=== PATIENT | female | born 1990 | race American Indian/Alaskan Native ===

== ENCOUNTER 2016-05-08 16:24 | Emergency (ER) | payer SELFPAY ==
--- NOTE | 2016-05-08 17:38 | Emergency Department Report ---
Chief Complaint: Vaginal Bleeding Stated Complaint: VAGINAL BLEEDING X 10 DAYS Time Seen by Provider: 05/08/16 17:32 - HPI History of Present Illness: 25-year-old female coming in for left lower pelvic pain 10 days also she complains of heavy vaginal bleeding for 10 days as well. Patient reports she isn't passing clots. She is using about 5 or more pads a day. Denies being . She denies chest pain shortness of breathing no nausea no vomiting no diarrhea. Patient reports that her cycle usually last about 5 days and she' s been having that sometimes twice a month beginning of the month as well as the end of the month. Patient denies having any abdomen pain at this time. She reports she has a past medical history of ovarian cysts on the right side. She currently does not have a primary care or primary commercial account officer. - Exam Vital Signs: Vital Signs 05/08/16 17:14 Temperature 98.2 F Pulse Rate 80 Respiratory 19 Rate Blood Pressure 150/110 O2 Sat by Pulse 98 Oximetry Physical Exam: Patient's age is alert and oriented 3. Cardiovascular regular rate and rhythm respiratory clear to auscultation bilaterally abdomen soft nontender nondistended. MSE screening note: Focused history and physical exam performed. Due to findings the following was ordered: CBC CMP serum UA ordered patient will be evaluated in the main ER ED Disposition for MSE Condition: Stable
[2016-05-08 17:56] LABS: Hematocrit 39.5 % (30.3-42.9); Hemoglobin 13.4 gm/dl (10.1-14.3); Mean Corpuscular HGB Conc 34 % (30-34); Mean Corpuscular Hemoglobin 28 pg (28-32); Mean Corpuscular Volume 83 fl (79-97); Platelet Count 291 K/mm3 (140-440); Red Blood Count 4.79 M/mm3 (3.65-5.03); Red Cell Distribution Width 13.5 % (13.2-15.2); White Blood Count 8.9 K/mm3 (4.5-11.0)
[2016-05-08 18:15] LABS: Anion Gap 15 mmol/L; Blood Urea Nitrogen 9 mg/dL (7-17); Calcium 8.8 mg/dL (8.4-10.2); Carbon Dioxide 27 mmol/L (22-30); Chloride 100.2 mmol/L (98-107); Glucose 93 mg/dL (65-100); Potassium 3.6 mmol/L (3.6-5.0); Sodium 139 mmol/L (137-145)
[2016-05-08 19:13] LABS: Bilirubin,Urine NEG (Negative); Blood,Urine LG (Negative); Ketones,Urine NEG (Negative); Leukocyte Esterase,Urine NEG (Negative); Mucus,Urine FEW /HPF; Nitrite,Urine NEG (Negative); Protein,Urine <15 mg/dL mg/dL (Negative); Urobilinogen,Urine < 2.0 mg/dL (<2.0)
[2016-05-08 19:14] LABS: RBC,Urine > 182.0 /HPF (0.0-6.0)
--- NOTE | 2016-05-09 04:11 | Ultrasound Report ---
FINAL REPORT PROCEDURE: US PELVIS DUPLEX DOPPLER COMP TECHNIQUE: Real-time transabdominal sonography in multiple planes of the pelvis was performed. The pelvic structures, especially the ovaries were not optimally visualized. Transvaginal sonography was then performed to better evaluate the structures and/or abnormalities described below with image documentation. CPT 25298 and 61830 HISTORY: pelvic pain COMPARISON: No prior studies are available for comparison. FINDINGS: UTERUS Size: 6.2 x 3.1 x 5 cm. Endometrial thickness: 10 mm. Orientation: anteverted. Cervix: Normal. Fibroids/masses: None. RIGHT Ovary: 4.2 x 3.2 x 3 cm. Appearance: The simple cyst on the right ovary measures 2.8 centimeters. LEFT Ovary: 3.1 x 2.5 x 5 cm. Appearance: Normal. Pelvic fluid: None. Other: There is blood flow to each ovary.. IMPRESSION: The uterus in left ovary have a normal appearance. There is a dominant simple cyst on the right ovary, this measures 2.8 centimeters.
--- NOTE | 2016-05-09 04:12 | Ultrasound Report ---
FINAL REPORT PROCEDURE: Pelvic ultrasound, transabdominal and transvaginal TECHNIQUE: Real-time transabdominal sonography in multiple planes of the pelvis was performed. The pelvic structures, especially the ovaries were not optimally visualized. Transvaginal sonography was then performed to better evaluate the structures and/or abnormalities described below with image documentation. CPT 13422 and 97459 HISTORY: pelvic pain COMPARISON: No prior studies are available for comparison. FINDINGS: UTERUS Size: 6.2 x 3.1 x 5 cm. Endometrial thickness: 10 mm. Orientation: anteverted. Cervix: Normal. Fibroids/masses: None. RIGHT Ovary: 4.2 x 3.2 x 3 cm. Appearance: The simple cyst on the right ovary measures 2.8 centimeters. LEFT Ovary: 3.1 x 2.5 x 5 cm. Appearance: Normal. Pelvic fluid: None. Other: There is blood flow to each ovary.. IMPRESSION: The uterus in left ovary have a normal appearance. There is a dominant simple cyst on the right ovary, this measures 2.8 centimeters. PROCEDURE: TECHNIQUE: HISTORY: COMPARISON: FINDINGS: IMPRESSION:
[2016-05-09 05:11] LABS: Basophils % (Auto) 0.3 % (0.0-1.8); Eosinophils % (Auto) 1.1 % (0.0-4.3); Hematocrit 36.2 % (30.3-42.9); Mean Corpuscular HGB Conc 33 % (30-34); Mean Corpuscular Hemoglobin 28 pg (28-32); Mean Corpuscular Volume 83 fl (79-97); Platelet Count 251 K/mm3 (140-440); Red Blood Count 4.35 M/mm3 (3.65-5.03); Red Cell Distribution Width 13.9 % (13.2-15.2); White Blood Count 8.3 K/mm3 (4.5-11.0)
--- NOTE | 2016-05-09 05:43 | Emergency Department Report ---
ED Female HPI - General Chief complaint: Vaginal Bleeding Stated complaint: VAGINAL BLEEDING X 10 DAYS Time Seen by Provider: 05/08/16 17:32 Source: patient Mode of arrival: Ambulatory Limitations: No Limitations - History of Present Illness Initial comments: 25-year-old female past medical history obesity, ovarian cysts presents with complaint of 10 days persistent heavy vaginal bleeding approximately 20-30 pads per day of minor right side adnexal pain/pelvic pain. Last menstrual period 04/28. Patient states that her periods are typically heavy and somewhat regular approximately 28-30 day cycle. Patient denies any chest pain no nausea no vomiting denies any sensation of weakness states that her concern is for heavy bleeding and passing clots, unsure of status. HEENT has minor amount of pelvic pain right side crampy intermittent in nature does not currently feel it at this moment during clinical interview. Does not currently have CLAIMS COUNSEL as she recently moved to this area. Complaint: vaginal bleeding Onset/Timin -: days(s) Radiation: RLQ Severity: moderate Severity scale (0 -10): 5 Quality: cramping Consistency: intermittent Improves with: none Worsens with: none Are you Now?: No Last Menstrual Period: 04/28/16 EDC: 02/02/17 Associated Symptoms: denies other symptoms - Related Data Home Medications Medication Instructions Recorded Confirmed Last Taken Albuterol Sulfate [Ventolin HFA] 2 puff IH Q4-6H PRN 05/09/16 05/09/16 Unknown Previous Rx's Medication Instructions Recorded Last Taken Type Docusate Sodium [Colace CAP] 100 mg PO BID PRN #30 capsule 05/09/16 Unknown Rx Ferrous Sulfate [Feosol 325 MG tab] 325 mg PO QDAY #30 tablet 05/09/16 Unknown Rx Naproxen [Naprosyn TAB] 500 mg PO BID PRN #25 tablet 05/09/16 Unknown Rx medroxyPROGESTERone ACETATE 10 mg PO QDAY #7 tablet 05/09/16 Unknown Rx [Provera] Allergies Allergy/AdvReac Type Severity Reaction Status Date / Time latex Allergy Hives Verified 05/08/16 17:13 ED Review of Systems ROS: Stated complaint: VAGINAL BLEEDING X 10 DAYS Other details as noted in HPI ED Past Medical Hx - Past Medical History Hx Headaches / Migraines: Yes Hx Asthma: Yes Additional medical history: SLEEP APNEA. OBESITY. OVARIAN CYSTS - Surgical History Past Surgical History?: No - Social History Smoking Status: Never Smoker Substance Use Type: Alcohol, Marijuana - Medications Home Medications: Home Medications Medication Instructions Recorded Confirmed Last Taken Type Albuterol Sulfate [Ventolin HFA] 2 puff IH Q4-6H PRN 05/09/16 05/09/16 Unknown History Docusate Sodium [Colace CAP] 100 mg PO BID PRN #30 capsule 05/09/16 Unknown Rx Ferrous Sulfate [Feosol 325 MG tab] 325 mg PO QDAY #30 tablet 05/09/16 Unknown Rx Naproxen [Naprosyn TAB] 500 mg PO BID PRN #25 tablet 05/09/16 Unknown Rx medroxyPROGESTERone ACETATE 10 mg PO QDAY #7 tablet 05/09/16 Unknown Rx [Provera] ED Physical Exam - General Limitations: No Limitations General appearance: alert, in no apparent distress - Head Head exam: Present: atraumatic, normocephalic - Eye Eye exam: Present: normal appearance - ENT ENT exam: Present: mucous membranes moist - Neck Neck exam: Present: normal inspection - Respiratory Respiratory exam: Present: normal lung sounds bilaterally. Absent: respiratory distress - Cardiovascular Cardiovascular Exam: Present: regular rate, normal rhythm. Absent: systolic murmur, diastolic murmur, rubs, gallop - GI/Abdominal GI/Abdominal exam: Present: soft, normal bowel sounds - External exam: Present: normal external exam Speculum exam: Present: vaginal bleeding, other (minor clots) Bi-manual exam: Present: adnexal tenderness (minimal tenderness right side on palpation) - Extremities Exam Extremities exam: Present: normal inspection - Back Exam Back exam: Present: normal inspection - Neurological Exam Neurological exam: Present: alert, oriented X3, CN II-XII intact, normal gait - Psychiatric Psychiatric exam: Present: normal affect, normal mood - Skin Skin exam: Present: warm, dry, intact, normal color. Absent: rash ED Course Vital Signs 05/08/16 05/09/16 05/09/16 17:14 01:54 02:29 Temperature 98.2 F 98.2 F 98.4 F Pulse Rate 80 83 98 H Respiratory 19 18 18 Rate Blood Pressure 150/110 147/93 Blood Pressure 149/94 [Right] O2 Sat by Pulse 98 99 99 Oximetry 05/09/16 02:32 Temperature Pulse Rate Respiratory 18 Rate Blood Pressure Blood Pressure [Right] O2 Sat by Pulse 99 Oximetry ED Medical Decision Making - Lab Data Result diagrams: 05/09/16 04:50 05/08/16 17:42 - Medical Decision Making A/P: Menorrhagia 1-case discussed with Dr. Denis 2-patient has normal H&H 2 in ED 3-ultrasound shows small right sided 2.5 cm ovarian cyst, blood flow normal right ovary 4-to give patient a trial of Provera to help control vaginal bleeding and will refer patient for follow-up to CLAIMS COUNSEL. I emphasized the importance of follow- up with CLAIMS COUNSEL. I advised patient to return to the ED if she notices any persistent rushing vaginal bleeding with bright red blood, chest pain, shortness of breath, extreme weakness or difficulty mentating/confusion. 5- will start patient empirically on iron supplementation. Critical care attestation.: If time is entered above; I have spent that time in minutes in the direct care of this critically ill patient, excluding procedure time. ED Disposition Clinical Impression: Menorrhagia Qualifiers: Menorrahagia type: with regular cycle Qualified Code(s): N92.0 - Excessive and frequent menstruation with regular cycle Disposition: DISCHARGED TO HOME OR SELFCARE Is pt being admited?: No Does the pt Need Aspirin: No Condition: Stable Instructions: Menorrhagia (ED) Prescriptions: Docusate Sodium [Colace CAP] 100 mg PO BID PRN #30 capsule PRN Reason: Constipation Ferrous Sulfate [Feosol 325 MG tab] 325 mg PO QDAY #30 tablet Naproxen [Naprosyn TAB] 500 mg PO BID PRN #25 tablet PRN Reason: Pain medroxyPROGESTERone ACETATE [Provera] 10 mg PO QDAY #7 tablet Referrals: PRIMARY CARE, [Primary Care Provider] - 3-5 Days MARTHA FOLEY MD [Staff Physician] - 3-5 Days [facility] [Provider Group] - 3-5 Days INESSA NUÑEZ MD [Staff Physician] - 3-5 Days [facility] [Outside] - 3-5 Days Forms: Accompanied Note, Work/School Release Form(ED) Time of Disposition: 05:47
[2016-05-09 06:09] VITALS: BP 138/88
== END 2016-05-09 06:09 | disposition home or self-care (01) ==
LOC: ED 16:24
DX: N92.0 Excessive and frequent menstruation with regular cycle (principal); G43.909 Migraine, unspecified, not intractable, without status migrainosus; J45.909 Unspecified asthma, uncomplicated; F12.10 Cannabis abuse, uncomplicated; Z91.040 Latex allergy status
CPT/HCPCS: 36415; 76830; 80048; 81001; 84702; 85025; 85027; 86850; 86900; 86901; 93975